=== PATIENT | male | born 1930 | race Caucasian/White ===

== ENCOUNTER 2018-09-25 10:02 | Emergency (ER) | payer MEDICARE, OTHER ==
[~2018-09-25] VITALS: Ht 175.3 cm; Wt 82.0 kg
[~2018-09-25 10:02] MED LIST: ACET-2971 PO; ASCO500C15 PO; ASPI-611 PO; ATOR10TA70 PO; CALC-1197 PO; CELE200C PO; COL0.6T PO; DICL100G15 TOP; DULO-31 PO; ESOM40CA PO; HYDR25TA4 PO; LEVO100T PO; LISI-604 PO; MULT-1172; TRAM50TA2 PO; UBID50TA3 PO; [UNRECOGNIZED DRUG - OTHER] PO
[2018-09-25] MEDS ORDERED: epiNEPHrine 1 mg/ml inj SQ STA (10:17)
[2018-09-25] MEDS ORDERED: tranexamic acid 100mg/ml inj. IV ONE (10:20)
[2018-09-25] MEDS ORDERED: methylPREDNISolone sod succ 125mg/2ml vial IV ONE (10:20)
[2018-09-25] MEDS ORDERED: famotidine/PF 10 mg/ml inj IV ONE (10:20)
[2018-09-25] MEDS ORDERED: tranexamic acid inj. 1,000 MG in normal saline 100ml IV soln 100 ML IV ONE (10:25)
[2018-09-25] MEDS ORDERED: PRED20TA PO (12:36)
[2018-09-25 12:49] VITALS: BP 160/82
== END 2018-09-25 13:35 | disposition home or self-care (01) ==
LOC: ER 10:02
DX: T78.3XXA Angioneurotic edema, initial encounter (principal); T46.4X5A Adverse effect of angiotensin-converting-enzyme inhibitors, initial encounter; Z79.82 Long term (current) use of aspirin; Z79.2 Long term (current) use of antibiotics; Z79.899 Other long term (current) drug therapy; Y92.89 Other specified places as the place of occurrence of the external cause
CPT/HCPCS: 96365; 96372; 96375; 99284; J0171; J2930; J3490